=== PATIENT | male | born 1980 | race African-American/Black ===

== ENCOUNTER 2018-04-13 15:30 | Emergency (ER) | payer MEDICAID, OTHER ==
[~2018-04-13] VITALS: Ht 177.8 cm; Wt 91.2 kg
[~2018-04-13 15:30] MED LIST: INSU100V4 SC; TRAM50TA2 PO
[2018-04-13 16:02] VITALS: BP 142/82
== END 2018-04-13 17:01 | disposition home or self-care (01) ==
LOC: ED 16:00
DX: E10.9 Type 1 diabetes mellitus without complications (principal); Z76.0 Encounter for issue of repeat prescription; F17.210 Nicotine dependence, cigarettes, uncomplicated
CPT/HCPCS: 99283